=== PATIENT | female | born 1940 | race Two or more races ===

== ENCOUNTER → 2016-06-22 | Outpatient (CLI) | payer MEDICARE, OTHER ==
--- NOTE | 2016-06-22 15:27 | RADRPT ---
PROCEDURE: XR bilateral hips. CLINICAL INDICATION: Hip pain TECHNIQUE: AP pelvis/lateral views of the right left hip were performed COMPARISON: No prior studies are available for comparison. FINDINGS: There is mild to moderate bilateral hip osteoarthrosis. This is associated with joint space narrowin g, subchondral sclerosis and osteophytosis. There is normal mineralization. No fractures or osseou s lesions are identified. The soft tissues are unremarkable. IMPRESSION: Mild to moderate bilateral hip osteoarthrosis. RPTAT: [facility] .Marco Jimenez MD, MD Date Time Electronically viewed and signed by .Marco Jimenez MD, on 06/22/2016 15:27 .B/
--- NOTE | 2016-06-22 15:30 | RADRPT ---
PROCEDURE: XR bilateral knees. CLINICAL INDICATION: Knee pain TECHNIQUE: AP weightbearing, lateral weightbearing and sunrise views of each knee are available fo r review. COMPARISON: None available FINDINGS: There is mild narrowing of the right and left medial tibial femoral compartments. There is chondroca lcinosis with bilateral medial and lateral meniscal calcification. The osseous structures are otherw ise normal in mineralization, architecture and alignment. No fractures are identified. No osseous lesions are identified. The soft tissues are unremarkable. IMPRESSION: Mild narrowing of the right and left medial tibial femoral compartments (query osteoarthrosis) Chondrocalcinosis RPTAT: HG[facility] .Marco Jimenez MD, MD Date Time Electronically viewed and signed by .Marco Jimenez MD, on 06/22/2016 15:29 .B/
--- NOTE | 2016-06-23 06:52 | HKNOTE ---
DATE OF SERVICE: 06/22/2016 MAIN COMPLAINT: Pain in both knees, worse on the right side. HISTORY OF MAIN COMPLAINT: The patient is a 75-year-old [place] female who complains of pain in her right knee which has been present for about 12 years. Twelve years ago, she was given an injection into the right knee by a doctor in [place], and it gave her marked relief for several years. In the past year, the pain has become progressively worse. Currently the pain is severe. PRESENT COMPLAINTS: The patient's pain is localized to the medial and posterior aspect of the knee. It is aggravated by walking, weightbearing and stair climbing. She does not get any rest pain. She uses lidocaine patches for pain. She has also taken tramadol. She does not have any back pain. No numbness or tingling in her legs. On a level surface, she can walk "20 meters approximately" with using a cane. She does limp part of the time. She does not have a shoe lift. PAST ORTHOPEDIC HISTORY: PREVIOUS ORTHOPEDIC OPERATIONS: None. PRIOR CORTISONE INTAKE: None. ALCOHOL INTAKE: None. OTHER JOINT PROBLEMS: None. BLOOD TESTS FOR ARTHRITIS: None. PRIOR INJURIES TO HIPS OR KNEES: None. WORK STATUS: Not applicable. PAST MEDICAL HISTORY: 1. "Heart problems." 2. Hypertension. 3. Diabetes type 2. PAST SURGICAL HISTORY: Cardiac stent placed at [facility] by Dr. Pradhan (2008). Defibrillator implant by Dr. Trivedi 06/06/2012. ALLERGIES: NONE. MEDICATIONS: 1. Carvedilol. 2. Eplerenone. 3. Montelukast. 4. ____. 5. Rosuvastatin. 6. Entresto (for hypertension). 7. Meclizine ____. 8. Metformin. 9. Furosemide. 10. Amiodarone. 11. Synjardy. ALLERGIES: NONE. FAMILY HISTORY: Father at 35 of heart problems. Mother at 83 of diabetes. SYSTEMS REVIEW: Prone to dizzy spells, age-related failing vision, occasional double vision, high b lood pressure, diabetes, heart defect. HABITS: The patient has smoked from 2 to 3 cigarettes a day for over 15 years. She drinks "sociall y." PRIMARY CARE PHYSICIAN: Dr. Josselin Mathews, [address] [facility] [address], [address], [place] [address] Mathews, Your patient, Andrea Casanova, was seen in my office today complaining of pain in her right knee. She gets pain with every step that she takes. X-rays show severe degenerative osteoarthritis of the right knee. The patient is advised that sooner or later she will need to have a right knee replacement operation . The surgery and some of the major possible complications were discussed with her and her . N umerous questions were asked and answered. The patient was given my manual titled "Arthritis of the Knee Joint" which contains information conc erning the various alternatives of treatment. It includes various forms of conservative treatment, i ncluding the use of nonsteroidal anti-inflammatory medications and their dangers. Various surgical a lternatives are discussed. The technique of total knee replacement is discussed in detail, including possible complications. Included also is a section on the possible complications of blood transfusi on, a section on postoperative precautions, and an exercise program to follow at home after total kn ee replacement. The long-term care of a total knee replacement implant is also covered in detail. Th e patient was instructed to read this manual in its entirety since it is, in and of itself, a form o f informed consent. After reading this manual, the patient will make a list of further questions azra t may not have been covered adequately. The patient was further advised that this manual, although e xhaustive in nature, is only intended to supplement and complement a one-on-one discussion with me. Under sterile conditions, she was given injection of 2 mL of Kenalog and 6 mL of 2% lidocaine into t he right knee. She will call if and when she might want to consider proceeding with surgery. Dictated By: SARAH SANTILLAN/JACK Conf#: [id number] DID#: [id number]
== END | disposition home or self-care (01) ==
LOC: HKI 14:43
DX: M17.11 Unilateral primary osteoarthritis, right knee (principal); M25.561 Pain in right knee; M25.562 Pain in left knee; I10 Essential (primary) hypertension; E11.9 Type 2 diabetes mellitus without complications; F17.210 Nicotine dependence, cigarettes, uncomplicated; Z79.84 Long term (current) use of oral hypoglycemic drugs
CPT/HCPCS: 20610; 73523; 73562; G0463; J3301